=== PATIENT | female | born 1980 | race Two or more races ===

== ENCOUNTER 2017-09-16 09:05 | Emergency (ER) | payer BC, MEDICAID ==
[2017-09-16 09:24] VITALS: BP 122/70
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
== END 2017-09-16 13:30 | disposition home or self-care (01) ==
LOC: JD.ED 09:05
DX: F32.9 Major depressive disorder, single episode, unspecified (principal); F41.9 Anxiety disorder, unspecified; R10.33 Periumbilical pain; E11.9 Type 2 diabetes mellitus without complications; F17.210 Nicotine dependence, cigarettes, uncomplicated; Z79.899 Other long term (current) drug therapy
CPT/HCPCS: 36415; 80053; 80306; 81001; 81025; 83690; 84443; 85025; 99285; G0480; 99283

== ENCOUNTER 2018-10-13 06:10 | Emergency (ER) | payer BC, MEDICAID ==
[2018-10-13 06:31] VITALS: BP 126/85
[2018-10-13] MEDS ORDERED: Ketorolac 60 MG/2 ML SDV IM ONE (06:58)
--- NOTE | 2018-10-15 06:30 | ER ---
REASON FOR EMERGENCY ROOM VISIT: Neck pain. HISTORY: This 38-year-old woman began to have stiffness and pain along the right side of her neck 3 days ago. She has been taking aspirin for it and nothing else. The pain gradually increased over the ensuing 3 days and moved down toward the right shoulder area. She had difficulty rotating her head in both directions and the pain was localized to the right side. She has not had any trauma to her head or neck. She has never had any disk problems or any previous problems of significant neck pain in the past. This morning, she woke up and her neck pain was worse to the point where her mobility was significantly impaired due to the pain and spasms. She denies any numbness or weakness or tingling in either extremity. She has had no history of neck trauma. PAST MEDICAL HISTORY: Significant for depression and anxiety. CURRENT MEDICATIONS: None. ALLERGIES: None to medications. SOCIAL HISTORY: She has a son. She does drink alcohol. Occasionally uses marijuana. REVIEW OF SYSTEMS: Pertinent positives and negatives as listed in the HPI. PHYSICAL EXAMINATION: GENERAL: Reveals she is somewhat tearful from the discomfort. She is afebrile. VITAL SIGNS: Blood pressure is 126/85, respirations 18, O2 sats 98%. HEENT: Her head is normocephalic and atraumatic. She has no tenderness over her temporal arteries. NECK: Passively, I am able to rotate her neck in both directions, perhaps over 30 degrees in both directions. On flexion and extension, she has less discomfort, but there is still some. It is mainly localized to the right side. There is no crepitus. Palpation and percussion over the spinous processes elicits minimal discomfort. She does have definite cervical paraspinal muscle spasm that is evident on both sides, perhaps more so on the right. NEUROLOGICAL: Her muscle strength in both upper extremities is equal and symmetrical. Her deep tendon reflexes in the upper and lower extremities are normal and symmetrical as well. Sensory examination is normal to crude touch. I could not detect a trigger point on my examination, it seems that she is tender all along the paraspinal muscles on the right side particularly, but no actual trigger point was detected. IMPRESSION: Cervical strain. PLAN: I discussed with her the nature of this and assured her that this is a very common disorder and I described to her the natural history of this. I do not feel things like MRIs are indicated at this juncture. In her case, I think a muscle relaxant such as Flexeril might prove to be useful. We did give her one Toradol 60 mg IM x1. I recommended that later on this evening, she can begin taking ibuprofen 800 mg t.i.d. every 8 hours around the clock with food. I asked her to do this for 4 days for the anti-inflammatory effect. Thereafter, she can take ibuprofen as needed. This combined with the muscle relaxant and warm moist heat applied often along with some stretching exercises should help her a great deal. I illustrated neck rolling, neck tilting, shoulder rolls, and neck bending exercises for stretching, and urged her to avoid any severe manipulation of her neck or any sudden manipulation. If she does not experience any improvement over the next week or 2 or certainly if at any time her symptoms get worse or she experiences numbness or weakness, she should be seen sooner. All this was discussed with her. All questions were answered. She understands and agrees to this plan. MARTIN /[id number]
== END 2018-10-13 07:12 | disposition home or self-care (01) ==
LOC: JD.ED 06:10
DX: S16.1XXA Strain of muscle, fascia and tendon at neck level, initial encounter (principal); Z79.82 Long term (current) use of aspirin; X58.XXXA Exposure to other specified factors, initial encounter
CPT/HCPCS: 96372; 99283; J1885

== ENCOUNTER 2023-09-04 12:30 | Emergency (ER) | payer MEDICAID ==
[2023-09-04 12:45] LABS: BASOPHILS PERCENT AUTO 0.4 % (0.0-1.0); EOSINOPHILS ABSOLUTE AUTO 0.1 K/mm3 (0.0-0.4); EOSINOPHILS PERCENT AUTO 0.9 % (0.0-6.0); HEMOGLOBIN 14.7 gm/dl (12.0-16.0); IMMATURE GRAN ABSOLUTE AUTO 0.03 K/mm3 (0.00-0.05); IMMATURE GRAN PERCENT AUTO 0.4 % (0.0-0.4); LYMPHOCYTES ABSOLUTE AUTO 1.8 K/mm3 (1.0-4.8); LYMPHOCYTES PERCENT AUTO 26.5 % (24.0-44.0); MEAN CORPUSCULAR HEMOGLOBIN 28.7 pg (28.0-32.0); MEAN CORPUSCULAR HGB CONC 33.4 g/dl (32.0-36.0); MEAN CORPUSCULAR VOLUME 85.8 fl (83.0-99.0); MEAN PLATELET VOLUME 11.7 fl (9.4-12.3); MONOCYTES ABSOLUTE AUTO 0.6 K/mm3 (0.0-0.8); NEUTROPHILS ABSOLUTE AUTO 4.2 K/mm3 (1.8-7.7); NEUTROPHILS PERCENT AUTO 62.8 % (41.0-71.0); PLATELET COUNT,PLT 262 K/mm3 (150-400); RED BLOOD CELL COUNT 5.13 M/mm3 (4.10-5.30); WHITE BLOOD CELL COUNT,WBC 6.69 K/mm3 (3.9-11.3)
[2023-09-04] MEDS ORDERED: Sodium Chloride 0.9% 10 ML Syringe FLUSH PRN (12:52)
[2023-09-04] MEDS ORDERED: Sodium Chloride 0.9% 1,000 ML IV ONE (12:52)
[2023-09-04 13:16] LABS: HEMOGLOBIN A1C 6.5 %
[2023-09-04 13:45] LABS: APPEARANCE,URINE CLEAR (Clear); BILIRUBIN,URINE NEGATIVE (Negative); COLOR,URINE YELLOW (Yellow); GLUCOSE,URINE 3+ (Negative); KETONES,URINE TRACE (Negative); LEUKOCYTE ESTERASE,URINE NEGATIVE (Negative); NITRITE,URINE NEGATIVE (Negative); OCCULT BLOOD,URINE NEGATIVE (Negative); PROTEIN,URINE TRACE (Negative); UROBILINOGEN,URINE 0.2 (0.2-1.0)
[2023-09-04 13:46] LABS: A/G RATIO 1.1 (1-2); ALBUMIN 3.5 g/dl (3.4-5.0); ANION GAP 17.8 (5-15); BILIRUBIN TOTAL 0.4 mg/dL (0.2-1.0); BUN/CREATININE RATIO 18.6 (14-18); CALCIUM 9.1 mg/dL (8.5-10.1); CREATININE 0.7 mg/dL (0.55-1.02); EST CRCL DRUG DOSING (CG) 89.48 mL/min; PROTEIN TOTAL,TP 6.7 g/dl (6.4-8.2)
[2023-09-04 13:51] LABS: POTASSIUM,K 3.8 mEq/L (3.5-5.1)
[2023-09-04 13:52] LABS: BACTERIA,URINE FEW /hpf (FEW); MUCUS,URINE NOT SEEN /hpf (FEW); RBC,URINE 0-5 /hpf (0-5); SQUAMOUS EPITHELIAL CELLS,UR 0-5 /hpf (0-5); WBC,URINE 0-5 /hpf (0-5)
[2023-09-04 14:54] VITALS: BP 100/64; PULSE 72
== END 2023-09-04 14:53 | disposition home or self-care (01) ==
LOC: JD.ED 12:30
DX: R55 Syncope and collapse (principal); T43.225A Adverse effect of selective serotonin reuptake inhibitors, initial encounter; E11.9 Type 2 diabetes mellitus without complications; Z79.84 Long term (current) use of oral hypoglycemic drugs; Z79.899 Other long term (current) drug therapy
CPT/HCPCS: 36415; 80053; 81001; 82947; 83036; 83735; 85025; 93005; 96360; 99284-25; J3490; J7030